=== PATIENT | male | born 1965 | race Two or more races ===

== ENCOUNTER 2018-02-23 23:02 | Emergency (ER) | payer OTHER ==
[~2018-02-23] VITALS: Ht 167.6 cm; Wt 93.0 kg
[2018-02-23] MEDS ORDERED: NORVASC5 MG (23:18)
[2018-02-23] MEDS ORDERED: COZAAR100 MG (23:18)
[2018-02-24] MEDS ORDERED: CATAPRES0.1 MG PO (06:36)
== END 2018-02-24 06:40 ==
LOC: ER 23:02 → CPU-OBS 23:04 → ER 02-24 06:40
DX: I16.0 Hypertensive urgency (principal); I10 Essential (primary) hypertension; R07.89 Other chest pain
CPT/HCPCS: G0378; G0379; 93005